=== PATIENT | female | born 1980 | race Caucasian/White ===

== ENCOUNTER 2020-11-06 22:38 | Emergency (ER) | payer OTHER ==
[~2020-11-06] VITALS: Ht 170.2 cm; Wt 68.0 kg
--- NOTE | 2020-11-06 23:24 | NUR ---
IV LINE PLACEMENT; R HAND #20. BLOOD DRAW DONE.
[2020-11-06] MEDS ORDERED: IV NS 0.9% 1,000 ML BAG IV ONE (23:30)
[2020-11-06] MEDS ORDERED: ONDANSETRON HCL/PF 4 MG/2 ML VIAL IVP ONE (23:30)
--- NOTE | 2020-11-06 23:30 | NUR ---
BREEZY TO ER BED#3. PT CHIEF COMPLAINT: SEVERE NAUSEA AFTER EATING GASPAR. PT A/OX4; IN NO ACUTE DISTRESS; ON ROOM AIR SATING @98% AT THE TIME OF ASSESSMENT. MD WAS AT THE BEDSIDE FOR EVAL. ORDERS RECEIVED, NOTED AND CARRIED OUT.
[2020-11-06 23:32] LABS: BASOPHILS # (AUTO) 0.1 K/uL (0.0-0.2); BASOPHILS % (AUTO) 1.2 % (0.0-2.0); EOSINOPHILS % (AUTO) 0.7 % (0.0-6.0); HEMATOCRIT 36 % (33-45); HEMOGLOBIN 11.9 g/dL (11.5-14.8); LYMPHOCYTES # (AUTO) 2.3 K/uL (0.8-4.8); LYMPHOCYTES % (AUTO) 34.2 % (20.0-44.0); MEAN CORPUSCULAR HGB CONC 33 g/dl (31.0-36.0); MEAN CORPUSCULAR VOLUME 92 fL (82-100); MONOCYTES # (AUTO) 0.3 K/uL (0.1-1.30); NEUTROPHILS % (AUTO) 58.9 % (43.0-81.0); PLATELET COUNT (AUTO) 236 K/uL (150-450); RED BLOOD CELL COUNT(AUTO) 3.88 MIL/uL (4.0-5.2); WHITE BLOOD COUNT (AUTO) 6.8 K/uL (4.3-11.0)
[2020-11-06 23:45] LABS: CALCIUM, SERUM 8.6 mg/dL (8.5-10.1); CREATININE 0.8 mg/dL (0.6-1.3); POTASSIUM 3.9 mmol/L (3.5-5.1)
[2020-11-06 23:51] LABS: ALBUMIN 3.9 g/dL (3.4-5.0); BILIRUBIN,TOTAL 0.1 mg/dL (0.2-1.0); TOTAL PROTEIN, SERUM 7.2 g/dL (6.4-8.2)
[2020-11-06] MEDS ORDERED: ONDA4TAB5 PO (23:54)
[2020-11-06 23:59] LABS: BILIRUBIN,DIRECT 0.1 mg/dL (0.0-0.2)
[2020-11-07] MEDS ORDERED: ONDANSETRON HCL/PF 4 MG/2 ML VIAL ONE (00:04)
[2020-11-07 00:45] VITALS: BP 121/75
--- NOTE | 2020-11-07 00:45 | NUR ---
Patient discharged to home in stable condition; ambulatory with a steady gait. Written and verbal after care instructions given. Patient verbalizes understanding of instruction.
== END 2020-11-07 00:45 | disposition home or self-care (01) ==
LOC: ER 22:52
DX: R11.0 Nausea (principal); Z60.2 Problems related to living alone; Z79.899 Other long term (current) drug therapy
CPT/HCPCS: 36415; 80048; 80076; 83690; 85025; 96361; 96374; 99283; J2405